=== PATIENT | female | born 1950 | race Two or more races ===

== ENCOUNTER 2022-12-24 14:02 | Emergency (ER) | payer OTHER ==
[~2022-12-24] VITALS: Ht 160 cm; Wt 75.3 kg
[2022-12-24] MEDS ORDERED: TIROSINT13 MCG PO (14:21)
[2022-12-24] MEDS ORDERED: GRALISE600 MG (14:21)
[2022-12-24] MEDS ORDERED: ENALAPRIL M1 MG/1 ML PO (14:21)
[2022-12-24] MEDS ORDERED: FENOFIBRATE50 MG (14:21)
[2022-12-24] MEDS ORDERED: ATORVASTATIN CA10 MG PO (14:21)
[2022-12-24] MEDS ORDERED: METAMUCIL0.4 GM (14:22)
[2022-12-24] MEDS ORDERED: PANTOPRAZOLE SO20 MG PO (14:22)
== END 2022-12-24 21:45 | disposition home or self-care (01) ==
LOC: ER 14:02
DX: E11.65 Type 2 diabetes mellitus with hyperglycemia (principal)